=== PATIENT | female | born 1960 | race Caucasian/White ===

== ENCOUNTER 2023-02-11 13:25 | Outpatient (CLI) | payer BC, SELFPAY | END 2023-02-11 13:26 | disposition home or self-care (01) | LOC: AMB 02-15 09:56 | PROVIDERS: Visit Provider Family Medicine | DX: R53.1 Weakness (principal) | CPT/HCPCS: A0425; A0427 ==

== ENCOUNTER 2023-02-11 13:55 | Emergency (ER) | payer BC, SELFPAY ==
[2023-02-11] VITALS (15 sets, daily range): BP systolic 94–117; BP diastolic 65–72; PULSE 58–61; RESP 16–20; TEMP 36.6; O2SAT 88–94; BMI 49.2
--- NOTE | 2023-02-11 14:00 | ED.NURSE ---
Pt arrived by EMS on non-rebreather at 15L O2.
[2023-02-11] MEDS: TICAGRELOR 90 MG TABLET 180 MG PO (14:05)
[2023-02-11] MEDS: HEPARIN 5,000 UNIT/0.5 ML INJ 4000 UNIT IVP (14:10)
--- NOTE | 2023-02-11 14:15 | ED.NURSE ---
RT and MD in room to assess pt. RT switched pt from non-rebreather to Oxymask at 6L.
--- NOTE | 2023-02-11 14:15 | CRLHL7_ITS ---
For Patients: As a result of the Century Cures Act, medical imaging exams and procedure reports are released immediately into your electronic medical record. You may view this report before your referring provider. If you have questions, please contact your health care provider. Indication: Chest pain and hypoxia Comparison: None available. Technique: Single AP view chest Findings: There is elevated left hemidiaphragm with basilar atelectasis and parenchymal scar. There are mildly increased interstitial markings. There is no pneumothorax. The right hemithorax is clear. The cardiac silhouette is mildly prominent. The bony thorax is grossly intact. Impression: Elevated left hemidiaphragm with basilar atelectasis. Mildly increased interstitial markings likely representing pulmonary edema. Dictated by Luther Hicks MD @ 02/11/2023 3:10:39 PM (Electronically Signed)
[2023-02-11] MEDS: HEPARIN 25,000 UNIT/500 ML BAG 20 UNIT IV (14:20)
--- NOTE | 2023-02-11 14:20 | ED.NURSE ---
Heparin infusion started at 1,000u/hr.
[2023-02-11 14:25] LABS: Troponin, Point-of-Care* 0.02 ng/ml (0.01-0.04)
--- NOTE | 2023-02-11 14:38 | ED_ITS ---
HPI - General Adult General Chief complaint: Chest Pain Stated complaint: shortness of breath Time Seen by Provider: 02/11/23 14:00 Source: patient and EMS Mode of arrival: EMS Limitations: no limitations History of Present Illness HPI narrative: 62-year-old female who presents to the ED complaining of acute shortness of breath and chest pain that started approximately 1 hour prior to presenting. Patient states she was walking up the stairs when she became acutely short of breath, diaphoretic and developed left-sided chest pain. EMS was called and she was brought here. Patient did received aspirin EN route. This has never happened her before. She states she was in her usual state of health prior to today. Past history significant for Onur's thyroiditis, obesity, depression on ketamine therapy, peripheral neuropathy, , cluster headaches, hiatal hernia. Patient states that her hiatal hernia causes her oxygen saturation to drop, she states that she has oxygen at home for this reason but does not use it. Previous tobacco user, quit 2005. Patient is on Synthroid 100 mcg daily, gabapentin 300 mg daily, Seroquel 200 mg daily and omeprazole 20 mg daily. Related Data Allergies Allergy/AdvReac Type Severity Reaction Status Date / Time doxycycline AdvReac Verified 02/11/23 14:06 Review of Systems Status of ROS: Reports: 6 or more systems reviewed and unremarkable except as noted in History and below [facility] Social History Smoking Status: Unknown if ever smoked Exam Narrative: Exam Narrative: Obese, diaphoretic female who presents with hypoxia and hypotension. Alert and oriented x3. Answers questions appropriately. Mood and affect are appropriate. Thoughts are goal oriented and rational. No tangential or magical thinking noted. Patient speaks in full sentences without needing to catch her breath. HEENT: Normocephalic atraumatic. Pupils are equally round reactive to light. Extraocular muscles are intact. Conjunctivae are moist without any icterus noted. Moist mucous membranes. Cardiovascular: Heart is regular rate and rhythm S1 and S2 are present without any murmurs. Lungs: Clear to auscultation bilaterally no wheezes rhonchi or rales are appreciated. Patient takes deep breaths without any discomfort. Abdomen: Soft and nontender nondistended with normal bowel sounds. Extremities: Bilateral lower extremities are without edema. Normal DP and PT pulses. Skin: Well perfused without any obvious rashes. Diaphoretic. Const: Vital Signs, click to edit/add: Vital Signs - 24 hr 02/11/23 13:59 02/11/23 14:06 02/11/23 14:14 Temperature Pulse Rate 59 L 60 Pulse Rate [Right Pulse Oximeter] 59 L Respiratory Rate 20 Blood Pressure 101/70 Blood Pressure [Ri ght Upper Arm] 117/72 Pulse Oximetry 90 91 88 Oxygen Delivery Me thod Room Air Non Rebreather Mas k Non Rebreather Mas k Oxygen Flow Rate 15 15 02/11/23 14:15 02/11/23 14:30 02/11/23 14:31 Temperature Pulse Rate 61 60 58 L Pulse Rate [Right Pulse Oximeter] Respiratory Rate Blood Pressure 98/65 Blood Pressure [Ri ght Upper Arm] Pulse Oximetry 92 92 93 Oxygen Delivery Me thod OxyMask OxyMask OxyMask Oxygen Flow Rate 6 6 6 02/11/23 14:41 Temperature 97.8 F Pulse Rate Pulse Rate [Right Pulse Oximeter] Respiratory Rate 16 Blood Pressure Blood Pressure [Ri ght Upper Arm] Pulse Oximetry Oxygen Delivery Me thod Oxygen Flow Rate Course Course Hospital Course: EKG immediately upon arrival shows ST elevations in the inferior leads consistent with ST-elevation [place]. Ticagrelor and heparin started immediately. IV fluids started. Cardiology with a level 1 consult called up to Clark Subhash. Labs drawn and portable chest x-ray taken. Vital Signs Vital signs: Initial Vital Signs Temperature Source Temporal Artery Scan 02/11/23 13:59 Pulse Rate 59 L 02/11/23 13:59 Pulse Rhythm Regular 02/11/23 13:59 Respiratory Rate 20 02/11/23 13:59 Blood Pressure 117/72 02/11/23 13:59 Blood Pressure Mean 87 02/11/23 13:59 Pulse Oximetry 90 02/11/23 13:59 Oxygen Delivery Method Room Air 02/11/23 13:59 Vital Signs Pulse Rate 59 L 02/11/23 13:59 Respiratory Rate 20 02/11/23 13:59 Blood Pressure 117/72 02/11/23 13:59 Pulse Oximetry 90 02/11/23 13:59 Oxygen Delivery Method Room Air 02/11/23 13:59 Temperature 97.8 F 02/11/23 14:41 Pulse Rate 58 L 02/11/23 14:31 Respiratory Rate 16 02/11/23 14:41 Blood Pressure 98/65 02/11/23 14:31 Pulse Oximetry 93 02/11/23 14:31 Oxygen Delivery Method OxyMask 02/11/23 14:31 Oxygen Flow Rate 6 02/11/23 14:31 Medical Decision Making MDM Narrative Medical decision making narrative: 62-year-old female with ST-elevation [place]. Patient will be transferred by air to [facility]. Lab Data Lab results reviewed: Yes I reviewed the patient's lab results Labs: Lab Results 02/11/23 Range/Units 14:05 POC Troponin I 0.02 (0.01-0.04) ng/ml Imaging Data Chest x-ray: Attestation: I have reviewed the pertinent imaging results. ECG Data Attestation: I personally reviewed and interpreted this ECG as follows: Critical Care Time Critical Care Time Total Critical Care Time in Minutes: 60 Discharge Plan Discharge Clinical Impression: ST elevation myocardial infarction (STEMI) [facility]: [facility] Follow Up/Referrals: Provider,Not a Local [Primary Care Provider] - Stand Alone Forms: MyHealth Info Instructions
--- NOTE | 2023-02-11 14:40 | ED.NURSE ---
O2 titrated up to 7L on oxymask.
[2023-02-11] MEDS: fentaNYL 100 MCG/2 ML inj 25 MCG IVP (14:43)
--- NOTE | 2023-02-11 14:45 | ED.NURSE ---
Pt O2 satting to ~90%. O2 titrated up to 8L oxymask.
--- NOTE | 2023-02-11 14:48 | ED.NURSE ---
Talked to [facility] via phone for report. Plan to fax [phone] to rn cardiac cath.
--- NOTE | 2023-02-11 14:49 | ED.NURSE ---
Pt satting ~90% O2. RT concerned of fluid overload on chest xray. O2 titrated up to 10L oxymask. NS infusion titrated down to 250 mLs/hr. notified.
[2023-02-11 14:50] LABS: Lactate* 2.9 mmol/L (0.5-1.9)
[2023-02-11 14:52] LABS: Albumin* 4.3 g/dL (3.3-5.0)
[2023-02-11 14:53] LABS: Chloride* 103 mmol/L (96-114); Potassium* 3.4 mmol/L (3.6-5.1); Sodium* 140 mmol/L (135-149)
[2023-02-11 14:55] LABS: Bilirubin Direct* 0.2 mg/dL (0.0-0.5); Bilirubin Total* 0.6 mg/dL (0.1-1.5); Carbon Dioxide* 27 mmol/L (20-32); Creatinine* 0.9 mg/dL (0.5-1.5); Est. Creatinine Clearance* 53.91; Estimated Glomerular Filt Rate 72 ml/min
[2023-02-11 14:56] LABS: Alanine Aminotransferase* 68 U/L (4-35); Alkaline Phosphatase* 103 U/L (40-150); Aspartate Amino Transferase* 99 U/L (12-35); Blood Urea Nitrogen* 20 mg/dL (7-30); Calcium* 9.6 mg/dL (8.4-10.6); Glucose* 173 mg/dL (60-115); Total Protein* 6.9 g/dL (6.0-8.3)
[2023-02-11 15:04] LABS: Basophils Absolute Auto 0.03 K/uL (0.00-0.30); Basophils Percent Auto 0.4 % (0.0-3.0); Eosinophils Absolute Auto 0.13 K/uL (0.00-0.50); Eosinophils Percent Auto 1.7 % (0.0-7.0); Hematocrit 50.4 % (33.0-51.0); Immature Granulocytes Abs Auto 0.03 K/uL (0.00-0.30); Immature Granulocytes Pct Auto 0.4 %; Lymphocytes Percent Auto 19.8 % (20-44); Mean Corpuscular HGB Conc 32 gm/dL (32-36); Mean Corpuscular Hemoglobin 31 pg (26-34); Mean Corpuscular Volume 98 fL (80-100); Monocytes Percent Auto 5.5 % (0.0-11.0); Neutrophils Percent Auto 72.2 % (42.0-72.0); Platelet Count* 178 K/uL (140-440); RDW Coefficient of Variation % 13.3 % (11.5-15.5); Red Blood Count 5.14 m/uL (4.00-5.20); White Blood Count* 7.43 K/uL (4.50-11.00)
[2023-02-11 15:07] LABS: Troponin I* 0.02 ng/mL (0.01-0.04)
[2023-02-11 15:32] LABS: Slide Review Reflex No
== END 2023-02-11 15:10 | disposition short-term general hospital (02) ==
PROVIDERS: Emergency Provider Family Medicine
DX: I21.3 ST elevation (STEMI) myocardial infarction of unspecified site (principal)
CPT/HCPCS: 36415; 71045; 80048; 80076; 83605; 84484; 85025; 93005; 99285; 99291; A9270; J1644; J3010